=== PATIENT | male | born 1960 | race Caucasian/White ===

== ENCOUNTER → 2016-08-08 | Outpatient (REF) | payer MEDICAID ==
[~2016-08-08] MED LIST: BIOF1TAB6 PO; LSNP10T PO; METF500T4 PO; NO HOME MEDS
[2016-08-08 12:11] LABS: BASOPHILS % (AUTO) 0 % (0-2); EOSINOPHILS # (AUTO) 0.2 10^3uL; EOSINOPHILS % (AUTO) 3 % (0-4); LYMPHOCYTES # (AUTO) 2.2 X10^3; MEAN CORPUSCULAR VOLUME 81 FL (80-100); MEAN PLATELET VOLUME 11.4 FL (6.0-9.5); MONOCYTES # (AUTO) 0.8 X10^3; MONOCYTES % (AUTO) 9 % (3-11); NEUTROPHILS % (AUTO) 60 % (51-67); PLATELET COUNT 164 10^3uL (150-450); WHITE BLOOD COUNT 8.32 10^3uL (4.0-11.0)
[2016-08-08 12:13] LABS: BILIRUBIN,URINE Negative (Negative); CLARITY,URINE Clear; COLOR,URINE Yellow; GLUCOSE, URINE (UA) 2+ (Negative); LEUKOCYTE ESTERASE ,URINE Negative (Negative); UROBILINOGEN,URINE 0.2 mg/dL (0.2-1.0)
[2016-08-08 12:18] LABS: ANION GAP 17.1 MEQ/L (3-15)
[2016-08-08 12:24] LABS: MEAN CORPUSCULAR HGB CONC 35.9 g/dL (31.0-37.0)
[2016-08-08 12:29] LABS: URINE CENTRIFUGED VOLUME 12 mL
== END ==
LOC: LAB 11:55
PROVIDERS: ATTEND Physician Assistant Surgical
DX: E29.1 Testicular hypofunction (principal); E13.10 Other specified diabetes mellitus with ketoacidosis without coma; I10 Essential (primary) hypertension
CPT/HCPCS: 80048; 81003; 81015; 83036; 84403; 85025

== ENCOUNTER → 2016-09-05 | Outpatient (CLI) | payer MEDICAID | LOC: RT 11:16 | PROVIDERS: ATTEND Physician Assistant Surgical | DX: R00.2 Palpitations (principal) | CPT/HCPCS: 93225 ==

== ENCOUNTER → 2016-09-20 | Outpatient (CLI) | payer MEDICAID | LOC: LAB 09:19 | PROVIDERS: ATTEND Physician Assistant Surgical | DX: E29.1 Testicular hypofunction (principal) | CPT/HCPCS: 36415; 84403 ==

== ENCOUNTER → 2016-11-13 | Outpatient (CLI) | payer MEDICAID | LOC: LAB 14:58 | PROVIDERS: ATTEND Physician Assistant Surgical | DX: E13.10 Other specified diabetes mellitus with ketoacidosis without coma (principal); E29.1 Testicular hypofunction | CPT/HCPCS: 36415; 83036; 84403 ==

== ENCOUNTER → 2016-11-14 | Outpatient (REF) | payer MEDICAID | LOC: LAB 16:26 | PROVIDERS: ATTEND Physician Assistant Surgical | DX: Z12.5 Encounter for screening for malignant neoplasm of prostate (principal) | CPT/HCPCS: 84153 ==